=== PATIENT | female | born 1950 | race Caucasian/White ===

== ENCOUNTER → 2020-05-04 | Outpatient (CLI) | payer OTHER | LOC: CAT 10:56 | PROVIDERS: ATTEND Internal Medicine Cardiovascular Disease | DX: Z13.6 Encounter for screening for cardiovascular disorders (principal); I25.10 Atherosclerotic heart disease of native coronary artery without angina pectoris; E78.00 Pure hypercholesterolemia, unspecified ==

== ENCOUNTER → 2020-06-05 | Outpatient (CLI) | payer OTHER | LOC: SJCVCIMAG 07:35 | PROVIDERS: ATTEND Internal Medicine Cardiovascular Disease | DX: I34.0 Nonrheumatic mitral (valve) insufficiency (principal); I10 Essential (primary) hypertension; R60.9 Edema, unspecified ==